=== PATIENT | male | born 1970 | race Caucasian/White ===

== ENCOUNTER 2020-04-16 03:08 | Emergency (ER) | payer MEDICAID ==
[~2020-04-16] VITALS: Ht 167.6 cm; Wt 69.3 kg
[2020-04-16 03:08] VITALS: BP 136/76
--- NOTE | 2020-04-16 03:09 | NUR ---
EMS REPORTS [facility] WAS ON SCENE. [facility] CALLED CASE # [id number]
[2020-04-16] MEDS ORDERED: LIDOcaine 1% W/epiNEPHrine 1:200,000 10ml vial IJ ONE (03:15)
[2020-04-16] MEDS ORDERED: TETanus/Pertussis (Acell)/Diphther VAC/PF (Tdap-Adult) 0.5ml syringe IMVAC ONE (03:15)
--- NOTE | 2020-04-16 03:21 | NUR ---
Pt walked out of room shortly (< 5 min) after being assessed by physician. Pt. was given water and then walked out. Contacted pt. in ambulance bay and asked him several times to return to ER for tx. Pt. refused and walked south from hospital.
== END 2020-04-16 03:23 | disposition left against medical advice (07) ==
LOC: ER 03:08
DX: S01.81XA Laceration without foreign body of other part of head, initial encounter (principal); M54.2 Cervicalgia; K21.9 Gastro-esophageal reflux disease without esophagitis; F17.200 Nicotine dependence, unspecified, uncomplicated; Z98.890 Other specified postprocedural states; Z91.013 Allergy to seafood; Y04.2XXA Assault by strike against or bumped into by another person, initial encounter; Y93.89 Activity, other specified; Y92.89 Other specified places as the place of occurrence of the external cause; Y99.8 Other external cause status
CPT/HCPCS: 99283

== ENCOUNTER 2020-04-16 05:43 | Emergency (ER) | payer MEDICAID ==
[~2020-04-16] VITALS: Ht 167.6 cm; Wt 82.3 kg
[2020-04-16 05:48] VITALS: BP 140/79
[2020-04-16] MEDS ORDERED: tetanus & diphtheria toxoid (Td) vaccine 0.5ml IMVAC ONE (05:55)
[2020-04-16] MEDS ORDERED: LIDOcaine 1% w/epiNEPHrine 1:200,000 30ml vial SQ ONE (05:55)
== END 2020-04-16 06:01 | disposition left against medical advice (07) ==
LOC: ER 05:43
DX: S01.81XA Laceration without foreign body of other part of head, initial encounter (principal); Z53.21 Procedure and treatment not carried out due to patient leaving prior to being seen by health care provider; W22.8XXA Striking against or struck by other objects, initial encounter; Y93.89 Activity, other specified; Y92.89 Other specified places as the place of occurrence of the external cause; Y99.8 Other external cause status
CPT/HCPCS: 90715